=== PATIENT | female | born 1960 | race American Indian/Alaskan Native ===

== ENCOUNTER 2017-04-08 06:15 | Day surgery (SDC) | payer OTHER ==
[2017-04-01 08:32] VITALS: BMI 29.9
[~2017-04-08 06:15] MED LIST: Ciprofloxacin 0.3% OPTH SOLN OS SCH; Cyclopentolate 1% Opth (2 ml) OS SCH; Flurbiprofen 0.03% Opht SOLN OS SCH; Lactated Ringer's 500 ML IV ONE; Phenylephrine 2.5% Opht Soln OS SCH; Tropicamide 1% Opht SOLUTION OS SCH
[2017-04-08] MEDS ORDERED: Phenylephrine 2.5% Opht Soln OS SCH ×2 (06:45→08:22)
[2017-04-08] MEDS ORDERED: Lactated Ringer's 1,000 ML IV ONE (07:00)
[2017-04-08] MEDS ORDERED: Povidone Iodine Ophthalmic 5% Soln ONE (07:43)
[2017-04-08] MEDS ORDERED: Tetracaine 0.5% Ophth (OR ONLY) ONE (07:43)
[2017-04-08] MEDS ORDERED: Carbachol 0.01% IO ONE (07:43)
[2017-04-08] MEDS ORDERED: Tobramycin/Dexamethasone OPHT OINT ONE ×2 (07:44→07:51)
[2017-04-08] MEDS ORDERED: Hyaluronidase Human, Recombi 150 U/ML VIAL ONE ×2 (07:44→09:23)
[2017-04-08] MEDS ORDERED: Chondroitin/Hyaluronate Opth Syringe KIT (0.55 ml-0.5 ml) IO ONE (07:44)
[2017-04-08] MEDS ORDERED: Lidocaine 2% w Epi 1:100,000 Inj IJ ONE (07:51)
[2017-04-08] MEDS ORDERED: Midazolam 2 MG/2 ML VIAL ONE (07:59)
[2017-04-08] MEDS ORDERED: Propofol 10 mg/ml Inj (20 ML) ONE (07:59)
[2017-04-08] MEDS ORDERED: Lidocaine Hydrochloride 5 ML INJ ONE (07:59)
[2017-04-08] MEDS ORDERED: MethylPREDNISolone 40 mg Vial ONE (08:03)
[2017-04-08] MEDS ORDERED: Gentamicin 80 mg/2mL Inj. ONE (08:03)
[2017-04-08] MEDS ORDERED: Lactated Ringer's 500 ML IV ONE (09:01)
[2017-04-08 12:52] VITALS: BP 162/100; PULSE 80; RESP 20; TEMP 97.3; O2SAT 99
--- NOTE | 2017-04-09 09:27 | OP ---
PROCEDURE DATE: 04/08/2017 PREOPERATIVE DIAGNOSIS: Pterygium, left eye. POSTOPERATIVE DIAGNOSIS: Progressive pterygium, left eye. OPERATIVE PROCEDURE: 1. Pterygium excision. 2. Conjunctivae reconstruction using amniotic membrane graft. SURGEON: Dr. Ivan Davis. ANESTHESIA: Retrobulbar block. COMPLICATIONS: None. DESCRIPTION OF PROCEDURE: The patient was brought to the operating room and properly identified. Sitting superiorly, the pterygium was injected with 0.1 with lidocaine with epinephrine. Once this is complete the pterygium was removed with 0.12 and Hilaria scissors. A ninoska bur was used to smooth out the corneal portion. Hemostasis maintained with cautery. Mitomycin C was placed on the bare sclera and then washed Neal. After 1-1/2 minutes was then washed away with 3 large syringes of BSS. Once this was complete, amniotic membrance was carefully cut to the appropriate side and glued into place. The patient returned to recovery room in stable condition. Ivan Sears MD cc: [id number] TT: 04/09/2017 09:26:50 jn MTDD
== END 2017-04-08 11:17 | disposition home or self-care (01) ==
LOC: C.SDS 06:15
PROVIDERS: ATTEND Ophthalmology
DX: H11.052 Peripheral pterygium, progressive, left eye (principal)
CPT/HCPCS: 65426; 88304; J1580; J2250; J2704; J2920; J3010; J3470; J7120; J9280

== ENCOUNTER 2017-04-28 17:30 | Emergency (ER) | payer OTHER ==
[2017-04-28 17:30] VITALS: BMI 29.9
[2017-04-28 17:42] VITALS: RESP 20; TEMP 97.7; O2SAT 98
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
[2017-04-28 18:28] VITALS: BP 122/80; PULSE 75
== END 2017-04-28 18:28 | disposition home or self-care (01) ==
LOC: C.ER 17:30
DX: Z77.098 Contact with and (suspected) exposure to other hazardous, chiefly nonmedicinal, chemicals (principal)